=== PATIENT | female | born 1975 | race Caucasian/White ===

== ENCOUNTER 2019-07-25 09:36 | Day surgery (SDC) | payer BC ==
[~2019-07-25 09:36] MED LIST: Lactated Ringers 1,000 ML IV SCH; Lidocaine 1%/Sod Bicarbonate in NS 8.4% 1 ML Syringe IDERM PRN; Sodium Chloride 0.9% 10 ML Syringe FLUSH PRN
[2019-07-25] MEDS ORDERED: Propofol 200 MG/20 ML SDV ONE ×2 (09:43→12:29)
[2019-07-25] MEDS ORDERED: Lidocaine 1% 4 ML ONE (09:43)
[2019-07-25] MEDS ORDERED: fentaNYL 100 MCG/2 ML SDV ONE (09:44)
[2019-07-25] MEDS ORDERED: Midazolam 1 MG/ML 2 ML SDV ONE (09:44)
--- NOTE | 2019-07-25 10:01 | PCM.PREANE ---
Preanesthetic Assessment - Procedure Proposed Procedure: egd colonoscopy - Anesthesia/Transfusion/Family Hx Anesthesia History: Prior Anesthesia Without Reaction Family History of Anesthesia Reaction: No Transfusion History: No Prior Transfusion(s) - Review of Systems General: No Symptoms Pulmonary: Shortness of Breath, Cough (smokes) Gastrointestinal: Abdominal Pain (2-3 years), Diarrhea Neurological: No Symptoms Other: Reports: Depression, Anxiety - Physical Assessment NPO Status Date: 07/24/19 NPO Status Time: 23:00 Vital Signs: 128/96 82 96% 97.1 16 Height: 5 ft 3 in Weight: 114.668 kg ASA Class: 2 Mental Status: Alert & Oriented x3 Airway Class: Mallampati = 1 Dentition: Reports: Broken Tooth/Teeth, Caries Thyro-Mental Finger Breadths: 3 Mouth Opening Finger Breadths: 3 ROM/Head Extension: Full Lungs: Normal Respiratory Effort, Rhonchi Cardiovascular: Regular Rate, Regular Rhythm - Allergies Allergies/Adverse Reactions: Allergies Allergy/AdvReac Type Severity Reaction Status Date / Time Penicillins Allergy Anaphylactic Verified 07/24/19 14:45 Shock - Blood Blood Available: No - Acknowledgements Anesthesia Type Planned: MAC Pt an Appropriate Candidate for the Planned Anesthesia: Yes Alternatives and Risks of Anesthesia Discussed w Pt/Guardian: Yes Pt/Guardian Understands and Agrees with Anesthesia Plan: Yes PreAnesthesia Questionnaire HEENT History: Reports: Impaired Vision, Other (See Below) Other HEENT History: WEARS GLASSES Cardiovascular History: Reports: Hypertension Respiratory History: Reports: SOB Gastrointestinal History: Reports: GERD, Helicobacter Pylori, Other (See Below) Other Gastrointestinal History: ESOPHAGITIS Genitourinary History: Reports: None WASTE DUSTER History: Reports: None Neurological History: Reports: None Psychiatric History: Reports: Addiction, Anxiety, Panic Attack, PTSD Endocrine/Metabolic History: Reports: Obesity/BMI 30+ Hematologic History: Reports: None Immunologic History: Reports: None Oncologic (Cancer) History: Reports: None Dermatologic History: Reports: Other (See Below) Other Dermatologic History: EDEMA - Past Surgical History Head Surgeries/Procedures: Reports: None Cardiovascular Surgical History: Reports: None Respiratory Surgical History: Reports: None GI Surgical History: Reports: None Female Surgical History: Reports: Section Male Surgical History: Reports: None Endocrine Surgical History: Reports: None Neurological Surgical History: Reports: Other (See Below) Other Neurological Surgeries/Procedures: BACK SURGERY WITH HARDWARE Musculoskeletal Surgical History: Reports: Arthroscopic Knee Oncologic Surgical History: Reports: None Dermatological Surgical History: Reports: None - SUBSTANCE USE Smoking Status *Q: Current Every Day Smoker Tobacco Use Within Last Twelve Months: Cigarettes Second Hand Smoke Exposure: Yes Days Per Week of Alcohol Use: 1 Number of Drinks Per Day: 3 Total Drinks Per Week: 3 Recreational Drug Use History: Yes Recreational Drug Type: Reports: Marijuana/Hashish - HOME MEDS Home Medications: Home Meds ALPRAZolam [Xanax] 0.5 mg PO BID PRN 07/24/19 [History] Albuterol [Ventolin HFA] 2 puff INH Q4H PRN 07/24/19 [History] Citalopram Hydrobromide [Celexa] 20 mg PO DAILY 07/24/19 [History] Pantoprazole Sodium [Protonix] 40 mg PO DAILY 07/24/19 [History] hydroCHLOROthiazide [Hydrochlorothiazide] 25 mg PO DAILY PRN 07/24/19 [History] polyethylene glycoL 3350 [MiraLAX] 1 dose PO DAILY 07/24/19 [History] - CURRENT (IN HOUSE) MEDS Current Meds: Current Medications Lactated Ringer's (Ringers, Lactated) 1,000 mls @ 125 mls/hr IV ASDIRECTED NAYLA Stop: 07/25/19 23:00 Lidocaine/Sodium Bicarbonate (Buffered Lidocaine 1% In Ns 8.4%) 0.25 ml IDERM ONETIME PRN PRN Reason: Prior to IV Start Stop: 07/25/19 18:00 Sodium Chloride (Saline Flush) 10 ml FLUSH ASDIRECTED PRN PRN Reason: Keep Vein Open Stop: 07/25/19 18:00 Discontinued Medications Fentanyl (Sublimaze) Confirm Administered Dose 100 mcg .ROUTE .STK-MED ONE Stop: 07/25/19 09:45 Lidocaine HCl (Xylocaine-Mpf 1%) Confirm Administered Dose 4 mls @ as directed .ROUTE .STK-MED ONE Stop: 07/25/19 09:44 Midazolam HCl (Versed 1 Mg/Ml) Confirm Administered Dose 2 mg .ROUTE .STK-MED ONE Stop: 07/25/19 09:45 Propofol (Diprivan 20 Ml) Confirm Administered Dose 600 mg .ROUTE .STK-MED ONE Stop: 07/25/19 09:44
[2019-07-25] MEDS ORDERED: Albuterol 0.083% 2.5 MG/3 ML Neb Soln NEB ONE (10:07)
--- NOTE | 2019-07-25 12:49 | PCM.OPNOTE ---
- General Post-Op/Procedure Note Date of Surgery/Procedure: 07/25/19 Operative Procedure(s): EGD and colonoscopy Findings: 1. Duodenitis 2. Gastritis 3. Colon polyps 4. Diverticulosis Pre Op Diagnosis: Abdominal pain, alternating constipation and diarrhea, rectal bleeding, history of H. pylori Post-Op Diagnosis: same Anesthesia Technique: LEONCIO Primary Surgeon: Crystal Saeed Anesthesia Provider: Drea Seymour Pathology: 1. Duodenum biopsy 2. Gastric antrum biopsy 3. Stomach body biopsy 4. Transverse colon biopsy 5. Ascending colon polyp 6. Sigmoid colon biopsy 7. Rectal polyp 3 Fluid Replacement, Intraop: 900 Output, Urine Amount: 0 EBL in mLs: 0 Complications: None apparent Condition: Good
--- NOTE | 2019-07-25 12:52 | PCM48HPAN ---
Post Anesthesia Note - EVALUATION WITHIN 48HRS OF ANESTHETIC Vital Signs in Normal Range: Yes Patient Participated in Evaluation: Yes Respiratory Function Stable: Yes Airway Patent: Yes Cardiovascular Function Stable: Yes Hydration Status Stable: Yes Pain Control Satisfactory: Yes Nausea and Vomiting Control Satisfactory: Yes Mental Status Recovered: Yes Vital Signs: Last Vital Signs Temp 97.1 F 07/25/19 09:45 Pulse 82 07/25/19 09:45 Resp 16 07/25/19 09:45 BP 128/96 H 07/25/19 09:45 Pulse Ox 94 L 07/25/19 10:07 118/79 100% 83 16 98.4
--- NOTE | 2019-07-25 12:52 | PCM.PRNOTE ---
- Free Text/Narrative Note: Operative Report Date of Procedure: July 25, 2019 Pre Op Diagnosis: Abdominal pain, alternating constipation and diarrhea, rectal bleeding, history of H. pylori Post-Op Diagnosis: Same Operative Procedures: 1. EGD with biopsy 2. Colonoscopy to the cecum with polypectomy Primary Surgeon: Crystal Saeed MD Anesthesia Provider: Drea Seymour CRNA Anesthesia Technique: MAC IV Fluid Replacement, Intraop: 900cc crystalloid Output, Urine Amount: 0cc EBL in mLs: 5cc Findings: 1. Duodenitis 2. Gastritis 3. Colon polyps 4. Diverticulosis Specimens: 1. Duodenum biopsy 2. Gastric antrum biopsy 3. Stomach body biopsy 4. Transverse colon biopsy 5. Ascending colon polyp 6. Sigmoid colon biopsy 7. Rectal polyp 3 Drain/Tubes: None Indication: The patient is a 44-year-old lady who presented to the clinic with implants of abdominal pain, alternating constipation diarrhea and some occasional blood per rectum.. The patient reported a history of 2 episodes of H. pylori. The patient was consented for a diagnostic EGD and colonoscopy. Risks of bleeding, and perforation were discussed, and the patient agreed to the risks and wished to proceed. Description of the procedure: The patient was taken back to the endoscopy suite, and placed in the left lateral decubitus position. A bite block was placed. The patient was sedated with MAC anesthesia. The Olympus video endoscope was inserted into the oropharynx and guided under direct vision into the esophagus, stomach, and duodenum. The duodenal bulb and second portion of the duodenum were erythematous and biopsies were taken with a cold biopsy forceps for histology. The gastric antrum was inspected and cold biopsy forceps were used to take tissue samples for H. pylori. The scope was withdrawn to the stomach and retroflexed. There was increased fluid in the body of the stomach. There was a Stratus in the antrum and body of the stomach. Biopsies were taken also in the body of the stomach with cold biopsy forceps. The scope was withdrawn to the esophagus. No Barretts esophagus changes were noted. The endoscope was then withdrawn Next, anorectal examination was performed. No lesions, masses or hemorrhoids were noted externally or on palpation. The scope was placed into the rectum and advanced to cecum. Upon reaching the cecum, and the patients cecum was entered. There was moderate tortuosity of the colon and significant looping of the scope which required addition of manual external pressure and change in the patient's position to supine. The scope was also withdrawn and reinserted in order to reach the cecum.. The ileocecal valve was well visualized and the appendiceal orifice identified. At this point, the scope was slowly withdrawn, paying attention to the mucosa. The patient had adequate bowel prep, allowing for visualization of polyps that were 5 mm or greater. Scattered areas of mucosal petechia were noted, and biopsies were taken in the transverse colon and sigmoid colon using cold biopsy forceps. A flat polyp was noted in the ascending colon measuring 2-3 mm and was removed using a cold biopsy forceps. The patient also had 3 rectal polyps that were flat and measuring 1-3 mm. These were removed using cold biopsy forceps. In the rectum, scope was retroflexed and some hemorrhoidal tissue was noted. The scope was placed back in the lumen and excess air was aspirated. The scope was removed. The patient tolerated the procedure very well. Complications: None apparent Condition: The patient was transported to PACU in stable condition. Crystal Saeed MD General Surgery
== END 2019-07-25 13:39 | disposition home or self-care (01) ==
LOC: JD.SDS 09:36
PROVIDERS: ATTEND Surgery
DX: D12.8 Benign neoplasm of rectum (principal); K63.5 Polyp of colon; K29.50 Unspecified chronic gastritis without bleeding; K29.80 Duodenitis without bleeding; K57.30 Diverticulosis of large intestine without perforation or abscess without bleeding; I10 Essential (primary) hypertension; F33.1 Major depressive disorder, recurrent, moderate; F41.9 Anxiety disorder, unspecified; K21.9 Gastro-esophageal reflux disease without esophagitis; F17.210 Nicotine dependence, cigarettes, uncomplicated; E66.9 Obesity, unspecified; Z68.42 Body mass index [BMI] 45.0-49.9, adult; Z79.899 Other long term (current) drug therapy; Z86.19 Personal history of other infectious and parasitic diseases; Z88.0 Allergy status to penicillin
CPT/HCPCS: 43239; 45380; 81025; 94640; J2001; J2250; J2704; J3010; J7120; 00813

== ENCOUNTER 2023-01-26 07:39 | Day surgery (SDC) | payer BC, MEDICAID ==
[~2023-01-26 07:39] MED LIST changes: -Lidocaine 1%/Sod Bicarbonate in NS 8.4% 1 ML Syringe IDERM PRN; +Sodium Chloride 0.9% 10 ML Syringe FLUSH SCH
[2023-01-26] MEDS ORDERED: Bupivacaine 0.5% 10 ML SDV ONE ×2 (09:17→09:19)
[2023-01-26] MEDS ORDERED: Midazolam 1 MG/ML 2 ML SDV ONE (09:28)
[2023-01-26] MEDS ORDERED: Lidocaine 1% 2 ML ONE (09:29)
[2023-01-26] MEDS ORDERED: Propofol 200 MG/20 ML SDV ONE ×3 (09:29→09:58)
[2023-01-26] MEDS ORDERED: Ketamine 500 mg/10 ML MDV ONE (09:34)
[2023-01-26] MEDS ORDERED: ePHEDrine 50 MG/ML SDV ONE (09:58)
[2023-01-26] MEDS ORDERED: Simethicone Drops 40 MG/0.6 ML 30 ML Bottle ONE (10:17)
[2023-01-26] MEDS ORDERED: Ondansetron 4 MG/2 ML SDV IVPUSH PRN (10:24)
[2023-01-26] MEDS ORDERED: Ketorolac 15 MG/ML SDV ONE (10:31)
== END 2023-01-26 11:44 | disposition home or self-care (01) ==
LOC: JD.SDS 07:39
PROVIDERS: ATTEND Surgery
DX: D12.3 Benign neoplasm of transverse colon (principal); K64.8 Other hemorrhoids; K29.50 Unspecified chronic gastritis without bleeding; K29.80 Duodenitis without bleeding; K57.30 Diverticulosis of large intestine without perforation or abscess without bleeding; F41.9 Anxiety disorder, unspecified; K21.00 Gastro-esophageal reflux disease with esophagitis, without bleeding; F43.10 Post-traumatic stress disorder, unspecified; E66.9 Obesity, unspecified; F41.1 Generalized anxiety disorder; Z88.0 Allergy status to penicillin; Z79.899 Other long term (current) drug therapy; Z86.010 Personal history of colon polyps; F17.290 Nicotine dependence, other tobacco product, uncomplicated; Z68.42 Body mass index [BMI] 45.0-49.9, adult
CPT/HCPCS: 43239; 45380; A9270; J1885; J2250; J2704; J3490; J7120; 00813